=== PATIENT | male | born 1970 | race African-American/Black ===

== ENCOUNTER 2016-11-07 04:04 | Inpatient (IN) ==
[2016-11-07] MEDS ORDERED: HYDROmorphone 2 MG/1 ML VIAL IV ONE (04:26)
[2016-11-07] MEDS ORDERED: CEFTAROLINE 600 MG in SODIUM CHLORIDE 0.9% 100 ML IV STA (04:26)
[2016-11-07] MEDS ORDERED: ONDANSETRON 4 MG/2 ML VIAL IV STA (04:26)
--- NOTE | 2016-11-07 04:28 | Emergency Department Note ---
Alexandra Corcoran Emily, am scribing for, and in the presence of, Jaswinder Lawrence MD 04: 26. Howard Corcoran Charles R, MD, personally performed the services described in this documentation, ascribed by Elise Morris in my presence, and it is both accurate and complete 428 . Arrival - Arrival Chief Complaint: Abscess Stated Complaint: ask pt ED Nursing Triage Note: Patient complains of an abscess to groin that has been going on for the past six days. Patient was seen in ER yesterday for same complaint and prescribed antibiotics and pain medication. Patient states that he did not get prescriptions filled and pain is worse. Mode of Arrival: Ambulatory Limitations: No Limitations Source: Patient Time Seen by Provider: 11/07/16 04:19 - History of Present Illness HPI Narrative: Pt is a 46 y/o male who came to ED with c/o abscess to groin that has been going on for the past six days. Pt was seen in ER yesterday for same complaint with prescribed antibiotics and pain medication, but not filled prescriptions and pain is worse. Pt notes his "old lady" has the money to get the medication , and getting them this morning. Pt is a smoker but denies DM. Onset (ago): day(s) Consistency: constant Severity: moderate Severity scale (1-10): 5 Quality: aching Allergies/Adverse Reactions: Allergies Allergy/AdvReac Type Severity Reaction Status Date / Time No Known Allergies Allergy Verified 11/06/16 11:31 Home Medications: Home Medications Medication Instructions Recorded Confirmed Type amLODIPine [Norvasc] 10 mg PO DAILY #30 tablet 11/06/16 11/07/16 Rx Review of System - Review of System 12 point system: reviewed and no additional remarkable complaints except as stated - Review of System Constitutional: Absent: fever Respiratory: Absent: respiratory distress Cardiovascular: Absent: chest pain Gastrointestinal: Absent: abdominal pain Skin: Present: lesions (abscess to penis and groin area). Absent: rash Medical,Surgical,& Family Hx - Medical History Cardio: History of: Hypertension Neurology: No history of: TIA - Social History Smoking Status: Current every day smoker Frequency of Alcohol Use: None Type of Drug Use: None Marital Status: Lives With:: Spouse Functional capacity: independent ambulation Exam Vital Signs: Vital Signs Temperature 97.7 F 11/07/16 04:10 Pulse Rate 78 11/07/16 04:10 Respiratory Rate 18 11/07/16 04:10 Blood Pressure 137/95 11/07/16 04:10 O2 Sat by Pulse Oximetry 95 11/07/16 04:10 - General General appearance: alert, in no apparent distress - Head Head exam: Present: atraumatic, normocephalic - Eye Eye exam: Present: PERRL, EOMI - ENT ENT exam: Present: mucous membranes moist. Absent: mucous membranes dry - Neck Neck exam: Present: full ROM, trachea midline - Chest Chest inspection: Present: symmetric chest wall rise - Respiratory Respiratory exam: Present: normal lung sounds bilaterally. Absent: respiratory distress - Cardiovascular Cardiovascular exam: Present: regular rate, normal rhythm, normal heart sounds - exam: Present: other (10x5 cm abscess in right groin area that is draining) - Extremities Exam Extremities exam: Present: full ROM. Absent: pedal edema - Neurological Exam Neurological exam: Present: alert, oriented X3, CN II-XII intact. Absent: motor sensory deficit - Psychiatric Psychiatric exam: Present: normal affect, normal mood - Skin Skin exam: Present: warm, dry Course Course Narrative: Blaise will admit pt for surgery. - Consultations Consultation #1: Dr. Welsh will admit patient Time: 04:28 Disposition Clinical Impression: Cellulitis, Abscess of skin or subcutaneous tissue, Abscess of right groin Case discussed with: patient Disposition: Still a Patient Condition: Stable Time of Disposition: 04:28
[2016-11-07] MEDS ORDERED: ONDANSETRON 4 MG/2 ML VIAL ONE ×2 (04:43→13:39)
[2016-11-07] MEDS ORDERED: CEFTAROLINE 600 MG VIAL IV ONE (04:43)
[2016-11-07] MEDS ORDERED: HYDROmorphone 2 MG/1 ML VIAL ONE (04:43)
[2016-11-07 04:58] LABS: Basophils % 0.2 % (0.0-0.8); Eosinophils # 0.2 10*3/uL (0.0-0.87); Eosinophils % 1.3 % (0.00-10.9); Hematocrit 38.8 VOL% (42.0-52.0); Hemoglobin 13.3 GM/DL (14.0-18.0); Immature Granulocytes % 0.4 %; Immature Granulocytes Absolute 0.07 #; Lymphocytes # 2.8 10*3/uL (1.4-4.0); Lymphocytes % 17.8 % (21.2-54.2); Mean Corpuscular HGB Conc 34.3 GM/DL (32-36); Mean Corpuscular Hemoglobin 30 PG (27-34); Mean Corpuscular Volume 87.6 FL (87-102); Mean Platelet Volume 9.6 FL (9.6-12.0); Monocytes # 1.7 10*3/uL (0.11-0.8); Monocytes % 10.7 % (1.7-12.7); Neutrophils % 69.6 % (38.7-73.9); Platelet Count 348 T/CUMM (130-400); Red Blood Count 4.43 MC/CUMM (3.8-5.5); Red Cell Distribution Width 13.4 % (9.3-17.3); White Blood Count 15.7 T/CUMM (4-12)
[2016-11-07] MEDS ORDERED: ALBUTEROL/IPRATROPIUM 3 ML NEB RESP TX PRN (05:27)
[2016-11-07] MEDS ORDERED: ONDANSETRON 4 MG/2 ML VIAL IV PRN (05:27)
[2016-11-07] MEDS ORDERED: ACETAMINOPHEN 325 MG TABLET PO PRN (05:27)
[2016-11-07 05:41] LABS: Albumin 3.4 G/DL (3.4-5.0); Bilirubin,Total 0.7 MG/DL (0.2-1.0); Calcium 8.8 MG/DL (8.5-10.1); Osmolality,Calculated 278.3 MOS/KG (273-304); Potassium 3.9 MMOL/L (3.5-5.1); Total Protein 6.6 G/DL (6.4-8.3)
[2016-11-07] MEDS: SODIUM CHLORIDE 0.9% 1,000 ML IV SCH ×2 (06:11→19:40)
--- NOTE | 2016-11-07 06:36 | XRay Report ---
History is preop respiratory screening The heart is normal in size. The lungs are clear. Impression: No acute pathology seen. PROCEDURE INTERPRETED AT [facility] DEPARTMENT OF RADIOLOGY Final Report Signed by: Dr. Kerri Vaughan
[2016-11-07] MEDS: PANTOPRAZOLE 40 MG TABLET PO SCH (08:13)
[2016-11-07] MEDS: amLODIPine 10 MG TABLET PO SCH (08:16)
--- NOTE | 2016-11-07 08:45 | General Surg History&Physical ---
Assessment and Plan - Time spent with patient Time spent with patient: Less than 30 minutes (1) Abscess of right groin Status: Acute Assessment and plan: I have discussed incision and drainage in the operating room under anesthesia. Procedure and risk of been explained and he wishes to proceed. We will obtain cultures. We will continue IV antibiotics. Current Visit: Yes (2) Numbness and tingling of both feet Status: Acute Assessment and plan: We will check a hemoglobin A1c. His glucose on admission was normal. Current Visit: Yes History of Present Illness Chief complaint: Pain in groin History of present illness: Mr. Mayberry is a 46 year old male Who for the last week has had increasing pain and swelling in the right lower groin just proximal to his scrotum. He has not had drainage. He has had fever and chills. He is unaware of any trauma or insect bite. Home Medications Medication Instructions Recorded Confirmed Type amLODIPine [Norvasc] 10 mg PO DAILY #30 tablet 11/06/16 11/07/16 Rx Allergies Allergy/AdvReac Type Severity Reaction Status Date / Time No Known Allergies Allergy Verified 11/06/16 11:31 Medical,Surgical,& Family Hx - Medical History Cardio: History of: Hypertension Neurology: No history of: TIA Respiratory: History of: Bronchitis - Surgical History Surgical History: noncontributory - Family History Family History: Reports;: Family Diabetes (mother), Family Hypertension (mother) , Additional Family History (mother is on dialysis) - Social History Smoking Status: Current every day smoker Frequency of Alcohol Use: None Type of Drug Use: None Exam - Constitutional Vitals: Period Temp Pulse Resp BP Sys/Salmeron Pulse Ox Last 24 Hr 97.3 F-97.7 F 64-78 18-18 137-147/95-96 95-97 General appearance: no acute distress - Head Head exam: Present: normocephalic - Eye Eye exam: Absent: scleral icterus - ENT Mouth exam: Present: normal voice - Neck Neck exam: Present: trachea midline - Respiratory Respiratory exam: Present: clear to auscultation bilaterally. Absent: accessory muscle use - Cardiovascular Cardiovascular exam: Present: RRR - GI/Abdominal GI/Abdominal exam: Present: soft, other (Just proximal to the scrotum on the right is about a 3 cm fluctuant abscess with surrounding induration and erythema.). Absent: distended, tenderness, rebound - Extremities Exam Extremities exam: Absent: edema - Back Exam Back exam: Present: normal inspection - Neurological Exam Neurological exam: Present: alert, oriented X3. Absent: motor sensory deficit Speech: Present: normal - Skin Skin exam: Present: normal color - Constitutional Constitutional: Present: chills, fever(s). Absent: anorexia, weight loss - Cardiovascular Cardiovascular: Absent: chest pain at rest, chest pain with activity, dyspnea, dyspnea on exertion - Respiratory Respiratory: Absent: cough, dyspnea, hemoptysis, dyspnea on exertion - Gastrointestinal Gastrointestinal: Absent: abdominal pain, hematemesis, hematochezia, nausea, vomiting, jaundice - Genitourinary Genitourinary: Absent: dysuria, hematuria - Musculoskeletal Musculoskeletal: Absent: back pain - Neurological Neurological: Present: paresthesias (In feet). Absent: focal weakness, syncope - Endocrine Endocrine: Absent: polyuria Hematologic/Lymphatic: Absent: easy bleeding, easy bruising Results - Labs CBC & BMP: 11/07/16 04:27 11/07/16 04:27 Lab Results: I have reviewed the past 24 hour labs
[2016-11-07] MEDS ORDERED: BUPIVACAINE 0.25% 50 ML VIAL ONE (12:37)
--- NOTE | 2016-11-07 13:09 | Operative Note ---
Date of procedure: 11/07/16 Pre-op diagnosis: Complex abscess right groin Post-op diagnosis: same Procedure: Incision and drainage for centimeter complex abscess right groin Findings and technique: After informed consent was obtained the patient was brought the operating room and placed in supine position. After successful induction of general anesthesia the patient was placed in lithotomy position and his groin and scrotum and perineum were prepped and draped in usual sterile fashion. There was an area of fluctuance at the right lower groin just lateral to the proximal aspect of the scrotum and an incision made over this area of fluctuance entering a cavity 2 cm wide by 4 cm in length tracking along the side of the scrotum. This was cultured and the pus suctioned out and the cavity then digitally explored to break up any loculations. This was copiously irrigated and packed with iodoform gauze. There was no evidence of a necrotizing soft tissue infection. I did not see evidence of Destiny's gangrene. Anesthesia: GETA Surgeon / Physician: Waqar Welsh III. Estimated blood loss: minimal Specimens: other (Culture) Condition: stable Disposition: PACU Results - Labs CBC & BMP: 11/07/16 04:27 11/07/16 04:27 Discharge Plan - Discharge Medications No Action amLODIPine [Norvasc] 10 mg PO DAILY #30 tablet - Follow Up or Referral - Forms/Instructions
--- NOTE | 2016-11-07 13:35 | Anesthesia Post-Op ---
Anesthesia Post OP - Post Ansesthetic Evaluation Patient seen in post op: Yes Resp: within normal limits CV: within normal limits Mental: within normal limits Temp: within normal limits [id number]: within normal limits Nausea and Vomiting: within normal limits Pain: within normal limits
[2016-11-07] MEDS ORDERED: SEVOFLURANE 1 UNIT/15 MINUTE INH ONE (13:38)
[2016-11-07] MEDS ORDERED: PROPOFOL 200 MG/20 ML VIAL IV ONE (13:38)
[2016-11-07] MEDS ORDERED: fentaNYL 100 MCG/2 ML VIAL ONE (13:39)
[2016-11-07] MEDS ORDERED: MIDAZOLAM 2 MG/2 ML VIAL ONE (13:39)
[2016-11-07] MEDS ORDERED: ACETAMINOPHEN 1,000 MG/100 ML VIAL IV ONE (13:39)
[2016-11-07] MEDS: AMPICILLIN/SULBACTAM 3,000 MG in SODIUM CHLORIDE 0.9% 100 ML IV SCH ×2 (14:17→19:39)
[2016-11-07] MEDS ORDERED: CEFTAROLINE 600 MG in SODIUM CHLORIDE 0.9% 100 ML IV SCH (16:00)
[2016-11-07] MEDS: HYDROmorphone 2 MG/1 ML VIAL IV PRN (20:06)
[2016-11-08] MEDS: HYDROmorphone 2 MG/1 ML VIAL IV PRN (00:45)
[2016-11-08] MEDS: AMPICILLIN/SULBACTAM 3,000 MG in SODIUM CHLORIDE 0.9% 100 ML IV SCH ×4 (00:46→20:14)
[2016-11-08 05:51] LABS: Basophils % 0.2 % (0.0-0.8); Eosinophils # 0.2 10*3/uL (0.0-0.87); Eosinophils % 1.6 % (0.00-10.9); Hematocrit 40.6 VOL% (42.0-52.0); Hemoglobin 13.3 GM/DL (14.0-18.0); Immature Granulocytes % 0.3 %; Immature Granulocytes Absolute 0.04 #; Lymphocytes # 2.8 10*3/uL (1.4-4.0); Lymphocytes % 22.6 % (21.2-54.2); Mean Corpuscular HGB Conc 32.8 GM/DL (32-36); Mean Corpuscular Hemoglobin 30 PG (27-34); Mean Corpuscular Volume 90.2 FL (87-102); Mean Platelet Volume 9.9 FL (9.6-12.0); Monocytes # 1.1 10*3/uL (0.11-0.8); Monocytes % 9.2 % (1.7-12.7); Neutrophils # 8.1 10*3/uL (1.4-7.4); Neutrophils % 66.1 % (38.7-73.9); Platelet Count 376 T/CUMM (130-400); Red Cell Distribution Width 13.3 % (9.3-17.3); White Blood Count 12.3 T/CUMM (4-12)
--- NOTE | 2016-11-08 08:31 | General Surgery Progress Note ---
Assessment and Plan (1) Abscess of right groin Status: Acute Assessment and plan: I have discussed incision and drainage in the operating room under anesthesia. Procedure and risk of been explained and he wishes to proceed. We will obtain cultures. We will continue IV antibiotics. 11/08: He feels much better and has much less pain. He is afebrile but his white blood cell count is still a little bit elevated. I think he would benefit from another day of IV antibiotics prior to discharge on p.o. antibiotics. Cultures are pending. Current Visit: Yes (2) Numbness and tingling of both feet Status: Acute Assessment and plan: We will check a hemoglobin A1c. His glucose on admission was normal. 11/08: His hemoglobin A1c is normal. Current Visit: Yes Subjective Patient reports: Present: feels better, pain is less. Absent: fever Exam - Constitutional Vitals: Period Temp Pulse Resp BP Sys/Salmeron Pulse Ox Last 24 Hr 96.9 F-98.8 F 62-80 16-20 120-154/72-97 93-98 General appearance: no acute distress - GI/Abdominal GI/Abdominal exam: Present: soft, other (His right groin has decreased induration and erythema and edema. We will pull his packing out of the wound today). Absent: distended, rebound Results - Labs CBC & BMP: 11/08/16 04:50 11/07/16 04:27 Lab Results: I have reviewed the past 24 hour labs Quality Measures - VTE Contraindication to Pharmacological VTE Prophylaxis: Clinical assessment deems Pt at low risk, no prophalaxis needed
[2016-11-08] MEDS: PANTOPRAZOLE 40 MG TABLET PO SCH (08:39)
[2016-11-08] MEDS: amLODIPine 10 MG TABLET PO SCH (08:39)
[2016-11-08] MEDS ORDERED: MELATONIN 3 MG TABLET PO PRN (11:10)
[2016-11-08] MEDS: FAMOTIDINE 20 MG TABLET PO SCH ×2 (11:38→20:16)
--- NOTE | 2016-11-08 15:32 | Discharge Summary ---
Hospital Course - Hospital Course Hospital Course: Patient is a 46-year-old male who presented to the emergency department with gradually increasing pain and swelling of the right groin with associated fever , chills, and leukocytosis. Abscess was identified and the patient was taken to the operating room for incision and drainage and treated with IV antibiotics. Procedure without complication and immediate relief postoperatively. Cultures were obtained. Patient responded well to IV antibiotics and the procedure with resolution of his leukocytosis, and significant improvement in the pain and swelling of the right groin. Unfortunately, he signed out AMA without receiving antibiotics. On 11/11/2016, cultures were reviewed and the patient was contacted via telephone @ . He was instructed to take ciprofloxacin 500 mg p.o. twice daily for 7 days. He requested the prescription be called into [facility] and this was done. He was also reminded he had a follow-up appointment scheduled with Dr. Welsh office on November 14 at 1:45 PM and he expressed understanding of this as well. Additionally, he was instructed to notify Dr. Welsh prior to his appointment if he experienced fever, increased pain, swelling, drainage, worsening pain, or malodor. Again, he verbally expressed understanding. Diagnosis - Discharge Diagnosis (1) Abscess of right groin Status: Acute Specialty Discharge - Follow Up or Referrals Follow up with: Waqar Welsh III., MD [Physician] - 11/14/16 1:45 pm Discharge Plan - Discharge Data Disposition: Left Against Medical Advice Condition at Discharge: Stable Discharge Diet: advance to your usual diet Activity: other (Avoid strenuous activity. Avoid perspiration. Wound care as below) Hygiene: may shower Driving: other (No driving while taking narcotic) Contact your physician if you experience:: fever over 101, Difficulty voiding, Redness or swelling, Nausea/Vomiting, Shortness of breath, Bleeding, pain uncontrolled by pain medications Wound / Dressing Care Instructions: Clean wound with Betadine daily and apply clean, dry dressing. - Discharge Medications New Clindamycin HCl [Clindamycin Cap] 300 mg PO Q8HR #24 capsule Famotidine Tab [Pepcid Tab] 20 mg PO BID tablet HYDROcodone/ACETAMIN 7.5-325 [[place] 7.5-325] 1 tablet PO Q4H PRN #20 tablet PRN Reason: Pain Moderate To Severe (4-10) Continue amLODIPine [Norvasc] 10 mg PO DAILY #30 tablet - Follow Up or Referral Follow Up: Waqar Welsh III., MD [Physician] - 11/14/16 1:45 pm - Forms/Instructions Instructions: Clindamycin (By mouth), Hydrocodone/Acetaminophen (By mouth), Abscess (GEN) Exam - Constitutional Vitals: Period Temp Pulse Resp BP Sys/Salmeron Pulse Ox Last 24 Hr 97.1 F-98.6 F 61-76 18-20 122-163/74-86 95-100 Discharge Results Procedures and tests throughout hospitalization: Pending Orders 11/07/16 Abscess Culture Routine Anaerobic Culture Routine 11/07/16 04:34 Blood Culture Stat 11/09/16 04:00 Comp Blood Count Auto Diff IN AM Blood cultures: Preliminary results no growth at time of discharge Abscess culture: Procedures: I&D complex abscess right groin Labs on day of discharge: Labs from last 24 hours 11/08/16 04:50 WBC 12.3 H RBC 4.50 Hgb 13.3 L Hct 40.6 L MCV 90.2 MCH 30 MCHC 32.8 RDW 13.3 Plt Count 376 MPV 9.9 Neut % (Auto) 66.1 Lymph % (Auto) 22.6 Pine % (Auto) 9.2 Eos % (Auto) 1.6 Baso % (Auto) 0.2 Neut # (Auto) 8.1 H Lymph # (Auto) 2.8 Pine # (Auto) 1.1 H Eos # (Auto) 0.2 Baso # (Auto) 0.0 Immature Gran % 0.3 Nucleated RBC % 0.0 Immature Gran # 0.04 Nucleated RBCs # 0.00 Immature Plt Fraction 0.0 Preliminary micro results at discharge 11/07/16 Unknown Abscess Culture - Preliminary Groin No growth at 24 hours 11/07/16 04:34 Blood Culture - Preliminary Blood No growth at 1 day 11/07/16 04:32 Blood Culture - Preliminary Blood No growth at 1 day - Imaging and Cardiology Procedure: Chest x-ray: image reviewed by me, report reviewed by me DS: Provider Date of admission: 11/07/16 04:29 Primary care physician: . No PCP Attending physician on admission: Bill Blaise, III., Consults: None Discharging clinician: Mary Ann Leal PA-C
[2016-11-09] MEDS: AMPICILLIN/SULBACTAM 3,000 MG in SODIUM CHLORIDE 0.9% 100 ML IV SCH ×2 (00:55→07:46)
[2016-11-09 05:18] LABS: Basophils % 0.4 % (0.0-0.8); Eosinophils # 0.2 10*3/uL (0.0-0.87); Eosinophils % 2.7 % (0.00-10.9); Hematocrit 41.1 VOL% (42.0-52.0); Hemoglobin 13.8 GM/DL (14.0-18.0); Immature Granulocytes % 0.4 %; Immature Granulocytes Absolute 0.03 #; Lymphocytes # 2.9 10*3/uL (1.4-4.0); Lymphocytes % 35.4 % (21.2-54.2); Mean Corpuscular HGB Conc 33.6 GM/DL (32-36); Mean Corpuscular Hemoglobin 30 PG (27-34); Mean Corpuscular Volume 89.3 FL (87-102); Mean Platelet Volume 9.8 FL (9.6-12.0); Monocytes # 0.9 10*3/uL (0.11-0.8); Monocytes % 10.7 % (1.7-12.7); Neutrophils # 4.2 10*3/uL (1.4-7.4); Neutrophils % 50.4 % (38.7-73.9); Platelet Count 401 T/CUMM (130-400); Red Cell Distribution Width 13.2 % (9.3-17.3); White Blood Count 8.3 T/CUMM (4-12)
[2016-11-09 07:59] VITALS: BP 150/99
[2016-11-09] MEDS: amLODIPine 10 MG TABLET PO SCH (09:19)
[2016-11-09] MEDS: PANTOPRAZOLE 40 MG TABLET PO SCH (09:20)
[2016-11-09] MEDS: FAMOTIDINE 20 MG TABLET PO SCH (09:20)
== END 2016-11-09 09:30 | disposition left against medical advice (07) | DRG 603 ==
LOC: N.ED 04:04 → N.EDINP 04:29 → N.3E 05:12
PROVIDERS: ADMIT Surgery; ATTEND Surgery

== ENCOUNTER 2020-09-26 20:04 | Observation (INO) ==
[2020-09-26] MEDS ORDERED: ALBUTEROL 2.5 MG/3 ML NEB RESP TX STA ×2 (21:11→22:31)
[2020-09-26 21:24] LABS: Basophils % 0.4 % (0.0-0.8); Eosinophils # 0.1 10*3/uL (0.0-0.87); Eosinophils % 1.4 % (0.00-10.9); Hematocrit 43.5 VOL% (42.0-52.0); Hemoglobin 14.3 GM/DL (14.0-18.0); Immature Granulocytes % 0.5 %; Immature Granulocytes Absolute 0.04 #; Lymphocytes # 1.5 10*3/uL (1.4-4.0); Lymphocytes % 18.3 % (21.2-54.2); Mean Corpuscular HGB Conc 32.9 GM/DL (32-36); Mean Corpuscular Volume 87.7 FL (87-102); Mean Platelet Volume 10.4 FL (9.6-12.0); Monocytes % 16.8 % (1.7-12.7); Neutrophils % 62.6 % (38.7-73.9); Platelet Count 351 T/CUMM (130-400); Red Blood Count 4.96 MC/CUMM (3.8-5.5); Red Cell Distribution Width 14.3 % (9.3-17.3); White Blood Count 8.3 T/CUMM (4-12)
[2020-09-26 21:29] LABS: PT Patient Result 11.1 SECS (10.5-12.0)
[2020-09-26 21:45] LABS: Lymphocytes 14 % (20-55); Segmented Neutrophils 70 % (50-85); Total Cells Counted 100
[2020-09-26] MEDS ORDERED: methylPREDNISolone SOD SUC 40 MG/1 ML VIAL IV STA (22:10)
[2020-09-26] MEDS ORDERED: LEVOFLOXACIN INJ 500 MG/100 ML PREMIX IV STA (22:10)
[2020-09-26 22:26] LABS: Albumin 3.9 G/DL (3.4-5.0); Bilirubin,Total 0.4 MG/DL (0.20-1.00); Calcium 8.9 MG/DL (8.5-10.1); Osmolality,Calculated 279.4 MOS/KG (273-304); Potassium 3.9 MMOL/L (3.5-5.1); Total Protein 7.3 G/DL (6.4-8.2)
[2020-09-26] MEDS: ALBUTEROL 2.5 MG/3 ML NEB RESP TX SCH (22:36)
[2020-09-26] MEDS ORDERED: ONDANSETRON 4 MG/2 ML VIAL IV PRN (22:38)
[2020-09-26] MEDS ORDERED: ACETAMINOPHEN 325 MG TABLET PO PRN (22:38)
[2020-09-26] MEDS ORDERED: CYCLOBENZAPRINE 10 MG TABLET PO PRN (22:43)
[2020-09-26] MEDS ORDERED: LACTATED RINGERS 1,000 ML IV SCH (23:00)
[2020-09-27] MEDS: cefTRIAXone 1,000 MG in SODIUM CHLORIDE 0.9% 100 ML IV SCH (02:17)
[2020-09-27] MEDS: AZITHROMYCIN INJ 500 MG in SODIUM CHLORIDE 0.9% 250 ML IV SCH (03:55)
[2020-09-27] MEDS: ALBUTEROL 2.5 MG/3 ML NEB RESP TX SCH ×6 (04:19→22:14)
[2020-09-27] MEDS: methylPREDNISolone SOD SUC 40 MG/1 ML VIAL IV SCH ×3 (06:19→20:46)
[2020-09-27] MEDS ORDERED: amLODIPine 10 MG TABLET PO SCH (09:00)
[2020-09-27] MEDS: PANTOPRAZOLE 40 MG TABLET PO SCH (09:57)
[2020-09-27] MEDS: ENALAPRIL 5 MG TABLET PO SCH (09:57)
[2020-09-27] MEDS: hydroCHLOROthiazide 25 MG TABLET PO SCH (09:57)
[2020-09-27] MEDS: atenoloL 50 MG TABLET PO SCH ×2 (09:57→20:45)
[2020-09-27] MEDS: DOCUSATE SODIUM 100 MG CAPSULE PO SCH ×2 (09:57→20:45)
[2020-09-27 12:00] LABS: Alanine Aminotransferase 72 U/L (16-61); Albumin 3.7 G/DL (3.4-5.0); Alkaline Phosphatase 135 U/L (45-117); Aspartate Amino Transferase 34 U/L (0-37); Bilirubin,Direct < 0.100 MG/DL (0.0-0.20); Bilirubin,Indirect 0.3 MG/DL (0.0-1.0); Bilirubin,Total < 0.39 MG/DL (0.20-1.00); Blood Urea Nitrogen 13 MG/DL (7-18); Calcium 8.8 MG/DL (8.5-10.1); Estimated Glom Filtration Rate 105 ML/MIN; Glucose 243 MG/DL (74-106); Total Protein 7.9 G/DL (6.4-8.2)
[2020-09-27 12:01] LABS: Carbon Dioxide 26 MMOL/L (21-32); Osmolality,Calculated 282.7 MOS/KG (273-304); Potassium 4.1 MMOL/L (3.5-5.1); Sodium 138 MMOL/L (136-145)
[2020-09-27] MEDS ORDERED: GLUCAGON 1 MG VIAL IM PRN (14:45)
[2020-09-27] MEDS ORDERED: DEXTROSE 50% 25 GM/50 ML VIAL IV PRN (14:45)
[2020-09-27] MEDS ORDERED: hydrALAZINE 20 MG/1 ML VIAL IV PRN (14:52)
[2020-09-27] MEDS ORDERED: ENOXAPARIN 40 MG/0.4 ML SYRINGE SUBCUT ONE (15:00)
[2020-09-27] MEDS ORDERED: ENOXAPARIN 30 MG/0.3 ML SYRINGE SUBCUT SCH (15:00)
[2020-09-27] MEDS: INSULIN REGULAR 100 UNIT/ML SUBCUT SCH ×2 (16:16→20:46)
[2020-09-28] MEDS: ALBUTEROL 2.5 MG/3 ML NEB RESP TX SCH ×2 (02:53→07:26)
[2020-09-28] MEDS: cefTRIAXone 1,000 MG in SODIUM CHLORIDE 0.9% 100 ML IV SCH (02:59)
[2020-09-28] MEDS: AZITHROMYCIN INJ 500 MG in SODIUM CHLORIDE 0.9% 250 ML IV SCH (03:51)
[2020-09-28 08:07] VITALS: BP 164/104
[2020-09-28] MEDS: methylPREDNISolone SOD SUC 40 MG/1 ML VIAL IV SCH (09:27)
[2020-09-28] MEDS: atenoloL 50 MG TABLET PO SCH (09:28)
[2020-09-28] MEDS: hydroCHLOROthiazide 25 MG TABLET PO SCH (09:28)
[2020-09-28] MEDS: INSULIN REGULAR 100 UNIT/ML SUBCUT SCH (09:29)
[2020-09-28] MEDS: ENALAPRIL 5 MG TABLET PO SCH (09:29)
[2020-09-28] MEDS: DOCUSATE SODIUM 100 MG CAPSULE PO SCH (09:29)
[2020-09-28] MEDS: PANTOPRAZOLE 40 MG TABLET PO SCH (09:29)
[2020-09-28] MEDS ORDERED: amLODIPine 10 MG TABLET PO SCH (21:00)
[2020-09-28] MEDS ORDERED: ENOXAPARIN 30 MG/0.3 ML SYRINGE SUBCUT SCH (21:00)
[2020-09-28] MEDS ORDERED: ENOXAPARIN 40 MG/0.4 ML SYRINGE SUBCUT SCH (21:00)
== END 2020-09-28 10:20 | disposition home or self-care (01) ==
LOC: N.EDINP 20:04 → N.ED 20:04 → N.3E 09-27 01:00
PROVIDERS: ADMIT Family Medicine; ATTEND Family Medicine